=== PATIENT | male | born 1975 | race Hispanic/Latino ===

== ENCOUNTER 2024-11-08 17:18 | Observation (INO) | payer SELFPAY ==
--- NOTE | ~2024-11-08 | CT_ITS ---
EXAMINATION: CT soft tissue neck w con DATE: 11/08/2024 20:46 INDICATION: Abscess TECHNIQUE: Computed tomography (CT) of the neck was performed with 75 mL Omnipaque-350 intravenous co ntrast. Automated exposure control and iterative reconstruction technique were employed. The dose-gio gth product was 522.85 mGy-cm. COMPARISON: None FINDINGS: The thyroid gland is unremarkable. The submandibular and parotid glands are symmetric. Prominent, but not pathologically enlarged upper anterior cervical chain and submandibular lymph nodes. Soft ti ssue fullness in the hypopharynx at the midline and to the right of midline, in the pharyngeal mucosa l space, just above the level of the cricoid cartilage. The superior mediastinum is unremarkable. The airway is unremarkable. Parapharyngeal and retropharyngeal fat planes are preserved. Unrema rkable enhancing neck vessels. The orbits are unremarkable. Visualized sinuses and mastoid air cecilio ls are well aerated. The visualized lung parenchyma is clear. There is cervical spondylosis. Old left medial orbital wall fracture. IMPRESSION: Suggestion of pharyngeal mucosal space soft tissue fullness at the midline and to the right of midlin e, just above the level of the cricoid cartilage. Recommend ENT referral for indirect/direct laryngos copy to exclude a mass. Reviewed, dictated and finalized at location K. IMPRESSION: Suggestion of pharyngeal mucosal space soft tissue fullness at the midline and to the right of midline, just above the level of the cricoid cartilage. Recomme nd ENT referral for indirect/direct laryngoscopy to exclude a mass.
[2024-11-08 17:37] VITALS: BP 145/88; PULSE 80; RESP 18; TEMP 36.7; O2SAT 95
[2024-11-08 19:23] VITALS: BP 156/116; PULSE 85; RESP 14; O2SAT 96
--- NOTE | 2024-11-08 19:27 | ED.SKABFB ---
HPI - Skin/Abscess/Foreign Bdy General Chief complaint: Skin/Abscess/Foreign Body <Juana Rodarte PA-C - Last Filed: 11/08/24 22:47> Stated complaint: MALHOTRA, bump? 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 He has been on Doxycycline for 2 days with worsening of his symptoms. Reports drainage from the area. Denies fevers. <Juana Rodarte PA-C - Last Filed: 11/08/24 22:47> Related Data Home medications: Home Medications ?Medication ?Instructions ?Recorded ?Confirmed ?Last Taken ?Type doxycycline hyclate 100 mg capsule 100 mg PO Q12H 11/09/24 11/09/24 Unknown History <Juana Rodarte PA-C - Last Filed: 11/08/24 22:47> Allergies/Adverse reactions: Allergies Allergy/AdvReac Type Severity Reaction Status Date / Time No Known Allergies Allergy Verified 11/08/24 19:26 <Juana Rodarte PA-C - Last Filed: 11/08/24 22:47> Review of Systems Review of Systems: CONSTITUTIONAL: Denies fever SKIN: Reports abscess <SHANEKA Washington Last Filed: 11/08/24 22:47> All systems reviewed & are unremarkable except as noted in HPI and below <SHANEKA Washington Last Filed: 11/08/24 22:47> [facility] Past Medical History Medical History: Medical History Obesity, Class III, BMI 40-49.9 (morbid obesity) <Juana Rodarte PA-C - Last Filed: 11/08/24 22:47> Surgical History Surgical History: Surgical History No history of previous surgery <Juana Rodarte PA-C - Last Filed: 11/08/24 22:47> Family History Family History: Family History Other Unknown family medical history <Juana Rodarte PA-C - Last Filed: 11/08/24 22:47> Social History Social History: Social History Social History: The patient is . He has 2 adult sons. 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 Denies any history of tobacco, marijuana or alcohol use. Code status: Full code Surrogate decision maker: Smoking status: Never smoker Alcohol intake: never Substance use: never Do You Feel Safe in your Home?: Yes Lack of Transportation: No Lack of Food: Never True Current Housing: I Have Housing Concerned About Future Housing: No Difficulty Paying Gas/Electric Bills: No Difficulty Paying for Meds: YES Currently Unemployed: No Education: Grade School Difficulty w/ Childcare or Family Care: No Spiritual care concerns: No <Juana Rodarte PA-C - Last Filed: 11/08/24 22:47> Exam Narrative: GENERAL: Well-appearing, well-nourished, and in no acute distress. HEAD: Normocephalic, atraumatic. EYES: EOMI. NECK: Supple. Left posterior neck with large area of induration with central fluctuance, actively oozing pus CHEST: Clear to auscultation. No respiratory distress. No wheezes rales or rhonchi HEART: Regular rate and rhythm. No murmur heard. Normal peripheral pulses. EXTREMITIES: Normal range of motion. No edema. SKIN: Warm, dry, no rash. NEURO: No focal deficits. Alert and oriented x3. PSYCH: Normal mood and affect <Juana Rodarte PA-C - Last Filed: 11/08/24 22:47> Course Course Emergency Course: Patient updated on his workup and recommendation for admission <Juana Rodarte PA-C - Last Filed: 11/08/24 22:47> RESEARCH PROGRAM ASSISTANT/PA Physician Supervision I was made aware of this patient being in the emergency department. PA did discuss me that he abscess and be admitted. I did partially hear some of the history/conversation with the door somewhat open and translation services being used, during PA assessment and hospitalist's obtaining history of present illness and PMH, Past Fam hx, etc. I was available for consultation while patient was in the emergency department but did not personally evaluate them was not directly in their care. <Tigist Rodriguez MD - Last Filed: 11/09/24 13:29> Consultations Consultation #1: Spoke with Dr. Mayorga who will consult <Juana Rodarte PA-C - Last Filed: 11/08/24 22:47> Date: 11/08/24 <Juana Rodarte PA-C - Last Filed: 11/08/24 22:47> Consultation #2: Spoke with hospitalist about patient and workup who accepts admission <Juana Rodarte PA-C - Last Filed: 11/08/24 22:47> Date: 11/08/24 <Juana Rodarte PA-C - Last Filed: 11/08/24 22:47> Vital Signs Vital signs: Vital Signs Temperature 98.1 F 11/08/24 17:37 Pulse Rate 80 11/08/24 17:37 Respiratory Rate 18 11/08/24 17:37 Blood Pressure 145/88 H 11/08/24 17:37 Pulse Oximetry 95 11/08/24 17:37 Oxygen Delivery Room Air 11/08/24 17:37 Temperature 98.1 F 11/09/24 05:19 Pulse Rate 94 11/09/24 05:19 Respiratory Rate 20 11/09/24 09:00 Blood Pressure 136/82 11/09/24 05:19 Pulse Oximetry 92 11/09/24 09:00 Oxygen Delivery Room Air 11/09/24 09:00 <Juana Rodarte PA-C - Last Filed: 11/08/24 22:47> Vital Signs Temperature 98.1 F 11/08/24 17:37 Pulse Rate 80 11/08/24 17:37 Respiratory Rate 18 11/08/24 17:37 Blood Pressure 145/88 H 11/08/24 17:37 Pulse Oximetry 95 11/08/24 17:37 Oxygen Delivery Room Air 11/08/24 17:37 Temperature 98.1 F 11/09/24 05:19 Pulse Rate 94 11/09/24 05:19 Respiratory Rate 20 11/09/24 09:00 Blood Pressure 136/82 11/09/24 05:19 Pulse Oximetry 92 11/09/24 09:00 Oxygen Delivery Room Air 11/09/24 09:00 <Tigist Rodriguez MD - Last Filed: 11/09/24 13:29> MDM - Skin/Abscess/Foreign Bdy MDM Narrative Medical decision making narrative: Patient presents the emergency department for an abscess to the left posterior neck. Present over the last week. Has been on doxycycline for several days with little relief. He is afebrile and nontoxic appearing. CBC with leukocytosis to 10.6. This CRP is mildly elevated. CT soft tissue neck shows findings of cellulitis. No notable focal abscess. Incidentally shows a possible mass in his is pharynx. Patient updated on his workup and recommendation for admission. Blood cultures, wound culture sent. Patient started on IV antibiotics. Spoke with general surgery who will consult. Spoke with hospitalist about patient and workup who accepts admission <Juana Rodarte PA-C - Last Filed: 11/08/24 22:47> Differential Diagnosis Differential diagnosis: Likely abscess of skin or subcutaneous tissue and cellulitis <Juana Rodarte PA-C - Last Filed: 11/08/24 22:47> Lab Data Attestation: I reviewed the patient's lab results. <Juana Rodarte PA-C - Last Filed: 11/08/24 22:47> Result diagrams: 11/09/24 05:21 11/09/24 05:20 <Juana Rodarte PA-C - Last Filed: 11/08/24 22:47> Labs: Lab Results 11/08/24 Range/Units 19:42 WBC 10.6 H (4.5-10.0) K/mm3 RBC 5.62 (4.6-6.20) M/mm3 Hgb 16.8 (14.0-18.0) g/dL Hct 51.3 (42.0-52.0) % MCV 91.3 (80-100) fl MCH 29.9 (26-34) pg MCHC 32.7 (32-36) g/dl RDW 13.0 (11.5-14.5) % Plt Count 166 (150-375) k/mm3 MPV 12.0 H (7.4-10.4) fl Immature Gran % (Auto) 0.5 (0-0.5) % Neut % (Auto) 65.0 (45.5-73.1) % Lymph % (Auto) 20.9 (18.3-44.2) % Emmet % (Auto) 9.7 H (2.6-8.5) % Eos % (Auto) 3.3 (0-4.4) % Baso % (Auto) 0.6 (0.2-1.2) % Lymph # (Auto) 2.22 (0.9-3.2) K/mm3 Emmet # (Auto) 1.0 H (0.1-0.6) K/mm3 Eos # (Auto) 0.4 H (0-0.3) K/mm3 Baso # (Auto) 0.1 (0.0-0.1) K/mm3 Abs Immat Gran (auto) 0.05 H (0.00-0.031) K/mm3 Absolute Neuts (auto) 6.9 H (1.3-6.7) K/mm3 Absolute Nucleated RBC 0.000 (0.0-0.012) K/mm3 Nucleated RBC % 0.0 (0.0-0.2) % ESR 1 (0-20) mm/hr Sodium 139 (137-145) mmol/L Potassium 3.6 (3.4-5.0) mmol/L Chloride 99 (98-107) mmol/L Carbon Dioxide 32 H (22-30) mmol/L Anion Gap 8 (4-12) mmol/L BUN 12 (9-20) mg/dL Creatinine 0.77 (0.7-1.3) mg/dL Estim Creat Clear Calc 105 ml/min Estimated GFR > 60 (59 - ) Glucose 130 H (65-110) mg/dL Hemoglobin A1c 6.2 H (<5.7) % Calcium 9.0 (8.4-10.2) mg/dL C-Reactive Protein 2.3 H (<1.0) mg/dL <Juana Rodarte PA-C - Last Filed: 11/08/24 22:47> Lab Results 11/08/24 Range/Units 19:42 WBC 10.6 H (4.5-10.0) K/mm3 RBC 5.62 (4.6-6.20) M/mm3 Hgb 16.8 (14.0-18.0) g/dL Hct 51.3 (42.0-52.0) % MCV 91.3 (80-100) fl MCH 29.9 (26-34) pg MCHC 32.7 (32-36) g/dl RDW 13.0 (11.5-14.5) % Plt Count 166 (150-375) k/mm3 MPV 12.0 H (7.4-10.4) fl Immature Gran % (Auto) 0.5 (0-0.5) % Neut % (Auto) 65.0 (45.5-73.1) % Lymph % (Auto) 20.9 (18.3-44.2) % Emmet % (Auto) 9.7 H (2.6-8.5) % Eos % (Auto) 3.3 (0-4.4) % Baso % (Auto) 0.6 (0.2-1.2) % Lymph # (Auto) 2.22 (0.9-3.2) K/mm3 Emmet # (Auto) 1.0 H (0.1-0.6) K/mm3 Eos # (Auto) 0.4 H (0-0.3) K/mm3 Baso # (Auto) 0.1 (0.0-0.1) K/mm3 Abs Immat Gran (auto) 0.05 H (0.00-0.031) K/mm3 Absolute Neuts (auto) 6.9 H (1.3-6.7) K/mm3 Absolute Nucleated RBC 0.000 (0.0-0.012) K/mm3 Nucleated RBC % 0.0 (0.0-0.2) % ESR 1 (0-20) mm/hr Sodium 139 (137-145) mmol/L Potassium 3.6 (3.4-5.0) mmol/L Chloride 99 (98-107) mmol/L Carbon Dioxide 32 H (22-30) mmol/L Anion Gap 8 (4-12) mmol/L BUN 12 (9-20) mg/dL Creatinine 0.77 (0.7-1.3) mg/dL Estim Creat Clear Calc 105 ml/min Estimated GFR > 60 (59 - ) Glucose 130 H (65-110) mg/dL Hemoglobin A1c 6.2 H (<5.7) % Calcium 9.0 (8.4-10.2) mg/dL C-Reactive Protein 2.3 H (<1.0) mg/dL <Tigist Rodriguez MD - Last Filed: 11/09/24 13:29> Imaging Data Radiologist's impression: ITS Impressions Soft Tissue Neck CT 11/08/24 21:06 IMPRESSION: Suggestion of pharyngeal mucosal space soft tissue fullness at the midline and to the right of midline, just above the level of the cricoid cartilage. Recommend ENT referral for indirect/direct laryngoscopy to exclude a mass. <Juana Rodarte PA-C - Last Filed: 11/08/24 22:47> Critical Care Time Critical Care Time Critical Care Time: No <Juana Rodarte PA-C - Last Filed: 11/08/24 22:47> Discharge Plan Discharge Clinical Impression: Abscess, neck, Mass of pharynx <Juana Rodarte PA-C - Last Filed: 11/08/24 22:47> Patient Disposition: Still a Patient <Juana Rodarte PA-C - Last Filed: 11/08/24 22:47> Condition: Stable <Juana Rodarte PA-C - Last Filed: 11/08/24 22:47>
[2024-11-08 19:49] LABS: Basophils Absolute Auto 0.1 K/mm3 (0.0-0.1); Basophils Percent Auto 0.6 % (0.2-1.2); Eosinophils Absolute Auto 0.4 K/mm3 (0-0.3); Eosinophils Percent Auto 3.3 % (0-4.4); Hematocrit 51.3 % (42.0-52.0); Hemoglobin 16.8 g/dL (14.0-18.0); Immature Granulocyte Absolute 0.05 K/mm3 (0.00-0.031); Immature Granulocyte Percent A 0.5 % (0-0.5); Lymphocytes Absolute Auto 2.22 K/mm3 (0.9-3.2); Lymphocytes Percent Auto 20.9 % (18.3-44.2); Mean Corpuscular HGB Conc 32.7 g/dl (32-36); Mean Corpuscular Hemoglobin 29.9 pg (26-34); Mean Corpuscular Volume 91.3 fl (80-100); Monocytes Percent Auto 9.7 % (2.6-8.5); Neutrophils Absolute Auto 6.9 K/mm3 (1.3-6.7); Platelet Count Result 166 k/mm3 (150-375); Red Blood Count 5.62 M/mm3 (4.6-6.20); White Blood Count 10.6 K/mm3 (4.5-10.0)
[2024-11-08 20:02] LABS: Anion Gap 8 mmol/L (4-12); Blood Urea Nitrogen 12 mg/dL (9-20); CRP 2.3 mg/dL (<1.0); Carbon Dioxide 32 mmol/L (22-30); Chloride 99 mmol/L (98-107); Estimated CRCL calculation 105 ml/min; Estimated Glomerular Filt Rate > 60; Glucose 130 mg/dL (65-110); Potassium 3.6 mmol/L (3.4-5.0); Sodium 139 mmol/L (137-145)
--- OUTSIDE RECORDS SUMMARY | 2024-11-08 20:03 | XMS_ITS | Encounter Summary ---
Author Organization [facility] Address [address] [place] [address] Care Team Providers Care Associate Dean Name Role Phone None, Provider Primary Care Provider Unavaila ble Reason for Visit * Reason Comments Abscess Encounter Details Date Type Department Care Team (Late st Contact Info) Description 11/06/2024 6:42 PM CDT - 11/06/2024 8:40 PM CDT Emergency [facility] [place] [address] Bib Garcia PA [address] [place] [id number] Abscess Discharge Disposition: Home or Self Care (Routine Discharge) Social History Tobacco Use Types Packs/Day Years Used Date Smoking Tobacco: Never Assessed Sex and Gender Information Value Date Recorded Sex Assigned at Male 11/06/2024 6:36 PM CDT Legal Sex Male 6:32 PM CDT Gender Identity Not on file Sexual Orientation Not on file documented as of this encounter Last Filed Vital Signs Vital Sign Reading Time Taken Comments Blood Pressure 152/104 11/06/2024 6:35 PM CDT Pulse 88 11/06/2024 6:35 PM CDT Temperature 36.8 C (98.2 F) 11/06/2024 6:35 PM CDT Respiratory Rate 18 11/06/2024 6:35 PM CDT Oxygen Saturation 93% 11/06/2024 6:35 PM CDT Inhaled Oxygen Concentration - - Weight - - Height 165.1 cm (5' 5 ) 11/06/2024 6:35 PM CDT Body Mass Index - - documented in this encounter Discharge Instructions * Discharge Instructions* KRISTYN Arias - 11/06/2024 8:36 PM CDT [place] la medicaci??n seg??n lo prescrito. Aplique compresas tibias varias veces al d??a. Consulte con el ryley quir??rgico indicado para el tratamiento del quiste. Regrese a urgencias si los s??ntomasempeoran o aparecen nuevas inquietudes. * Attachments The following attachments cannot be sent through Care Everywhere. * Epidermal Cyst Discharge Instructions (Gibraltarian) documented in this encounter ED Notes * Swathi Abreu RN - 11/06/2024 8:40 PM CDT Provider discussed today's findings with the patient/family. The patient has been given informationregarding their treatment, follow up and concerning symptoms for which they should seek urgent or emergent attention. I have expressed the the importance of seeking attention should there be any new,or worsening symptoms or persistence of their condition. Patient verbalized understanding of the discharge instructions. * César Dorsey RN - 11/06/2024 6:37 PM CDT Pt ambulatory to ED complaining of wound on left neck x 4 days, denies other more specific symptoms. Gibraltarian speaking only bacteriology technician used. documented in this encounter Plan of Treatment Pending Results Name Type Priority Associated Diagnoses Date /Time CULTURE, WOUND, W/GRAM STAIN Microbiology STAT 11/06/2024 8:26 PM CDT Incision/Drainage Procedures Routine 025 9:37 PM CDT documented as of this encounter Procedures Procedure Name Priority Date/Time Associated Diagnosis Comments INCISION AND DRAINAGE Routine 11/06/2024 9:37 PM CDT HC BODY FLUID CULTURE STAT 11/06/2024 8:26 PM CDT documented in this encounter Visit Diagnoses Diagnosis Infected sebaceous cyst- Primary Sebaceous cyst documented in this encounter Administered Medications Inactive Administered Medications - up to 3 most recent administrations Medication Order MAR Action Action Date Dose Rate Site lidocaine-EPINEPHrine 1 %-1:[id number] injection 3 mL 3 mL, Intradermal, Once, 1 dose, On Sat11/06/24 at 1900 Given 11/06/2024 8:27 PM CDT 3 mLs Neck documented in this encounter Active and Recently Administered Medications Times are shown in CDT. Scheduled Medication Order 11/04/2024 11/05/2024 11/06/2024 lidocaine-EPINEPHrine 1 %-1:[id number] injection 3 mL (COMPLETED) 3 mL, Intradermal, Once, 1 dose, On Sat11/06/24 at 1900 2026 (Given - Provid er: Radha Lara RN) documented in this encounter Care Teams Associate Dean Relationship Specialty Start Date End Date None, Provider, PCP - General UNKNOWN PHYSICIAN SPECIALTY 11/06/24 documented as of this encounter
--- OUTSIDE RECORDS SUMMARY | 2024-11-08 20:03 | XMS_ITS | Clinical Summary ---
Author Organization [facility] Address [facility] [place] [address] Care Team Providers Care Carver And Checkerer Specials Name Role Phone None, Provider MD Primary Care Provider Unavaila ble Allergies No known active allergies Medications doxycycline hyclate (VIBRAMYCIN) 100 MG capsule Take 1 capsule (100 mg total) by mouth 2 (two) times daily for 7 days. 14 capsule 5 11/14/19 25 Active doxycycline hyclate (VIBRAMYCIN) 100 MG capsule Take 1 capsule (100 mg total) by mouth 2 (two) times daily for 7 days. 14 capsule 5 11/07/19 25 Discontinued Encounters Date Type Department Care Team Description 11/06/2024 6:42 PM CDT - 11/06/2024 8:40 PM CDT Emergency [facility] [place] [address] Bib Garcia PA Abscess Discharge Disposition: Home or Self Care (Routine Discharge) 11/06/2024 Travel from Last 3 Months Social History Tobacco Use Types Packs/Day Years Used Date Smoking Tobacco: Never Assessed Sex and Gender Information Value Date Recorded Sex Assigned at Male 11/06/2024 6:36 PM CDT Legal Sex Male 6:32 PM CDT Gender Identity Not on file Sexual Orientation Not on file Last Filed Vital Signs Vital Sign Reading [...] PM CDT Body Mass Index - - Plan of Treatment Health Maintenance Due Date Last Done Comments Colorectal Cancer Screening Colonoscopy (10 Years) 1977 Annual Physical 1980 Hepatitis C 1995 DTaP, Tdap and Td Vaccines ( 1 - Tdap) 1996 Hepatitis B Vaccines (1 of 3 - 19+ 3-dose series) 1996 COVID-19 Vaccine (2023-2 5 season) 2024 Influenza Adult (#1) 2024 Meningococcal B Vaccine Aged Out No l onger eligible based on patient's age to complete this topic Meningococcal Vaccine Aged Out No shelley norbert eligible based on patient's age to complete this topic Pneumococcal Vaccine: Pediat rics (0 to 5 Years) and At-Risk Patients (6 to 64 Years) Aged Out No longer eligible b ased on patient's age to complete this topic RSV Immunizations Under 20 Months Aged Out No longer eligible based on patient's age to complete this topic Procedures Procedure Name Priority Date/Time Associated Diagnosis Comments INCISION AND DRAINAGE Routine 11/06/2024 9:37 PM CDT HC BODY FLUID CULTURE STAT 11/06/2024 8:26 PM CDT from Last 3 Months Care Teams Carver And Checkerer Specials Relationship Specialty Start Date End Date None, Provider, MD PCP - General UNKNOWN PHYSICIAN SPECIALTY 11/06/24
--- OUTSIDE RECORDS SUMMARY | 2024-11-08 20:03 | XMS_ITS | Continuity of Care Document ---
Author Organization [facility] Address [address] [place] [address] Phone Care Team Providers Care Robotype Operator Name Role Phone Ovi Romero Unavailable Unavailable Ovi Romero Unavailable Unavailable Medications Medication Instructions Dosage Effective Dates (start - stop) Status Comments ibuprofen 600 mg tablet take 1 tablet by oral route1 time every 6-8 hours as needed with food - No Longer Active Tylenol Extra Strength 500 mg tablet take 2 tablet by oral route every 6 hours as needed 1000 MG - No Longer Active Procedures Procedure Date Caries Risk Assess & Doc High Risk Limit Oral Evaluation- problem focused A Periapical Radiographic, first Image Mar Dental Bitewing Radiographic, One Image Extraction erupted tooth or exposed root Immun admin-adult or WO counseling-each [place] aft [address] HEPATITIS A VACCINE, ADULT DOSAGE, FOR I NTRAMUSCULAR USE Immun admin-adult or WO counseling - fir st vaccine/toxoid Fluarix OFFICE/OUTPATIENT VISIT, NEW Advance Directives Directive Yes / No Effective Date File Name No Information Encounters Encounter Description Practice Location Reason(s) For Visit Diagnoses Date Provider Providers Copied on Encounter [facility] , [address], [place], [place], [id number], [place] tel:[phone] [facility] Encounter for dental exam and cleaning w abnormal findingsDental caries on pit and fissure surface penetrat into pulp Heather Dior. [address], [place], [place], [address]. tel:[phone] Referring Provider: Sury Fleming, [address], [place], [address] . tel:[phone] sulting Provider: Ovi Romero, [address], [place], [address] . tel:[phone] OFFICE/OUTPAT IENT VISIT, [facility] , [address], [place], [place], [id number], tel:[phone] Urgent Care Hep A (chief complaint) Body mass index (BMI) 38.0-38.9, adultEncounter for immunization 2 No Information Referring Provider: Shailesh Toscano, [address], [place], [address] . tel:[phone] Family History Family Member Type Diagnosis Age At Onset No Information Immunizations Vaccine Date Status Comments Fluzone/Flulaval (Influenza, 6 months and older, preservative free) administered Note: pt tolerated w ell ; Source: New Immunization Record Vaqta/Havrix (HepA adult) administered No te: pt tolerated well ; Source: New Immunization Record Payers Payer name Insurance type Covered alliance party ID Authoriza tion(s) No Information Social History Type Description Quantity Date Captured Comments Sex Male Smoking Status No Information Sexual Orientation Straight or heterosexual Jul Gender Identity Male Chief Complaint And Reason For Visit No Information Reason For Referral Reason For Referral No Information Plan Of Treatment Date Type Action Status Nutrition Recommendation Nutrition therap y completed History Of Present Illness Encounter Date Complaint History Of Prese nt Illness Hep A ethiopian audio in terpreter assistedpt here for hep a shotpt needs it for workpt has not had a flu shot this year Functional Status Date Functional Assessmen t No Information Instructions Date Instruction Additional Infor mation Prescribed activity/ exercise education Related to Body mass index [BMI] 38.0-38.9, adult Assessments Type Assessment Date No Information Patient Care Teams Name Effective Dates (start - stop) Status Members No Information
[2024-11-08 20:18] LABS: Erythrocyte Sedimentation Rate 1 mm/hr (0-20)
[2024-11-08 20:29] LABS: Hemoglobin A1C 6.2 % (<5.7)
[2024-11-08 22:14] VITALS: BP 162/100; PULSE 83; RESP 14; O2SAT 94
[2024-11-08] MEDS: VANCOMYCIN 1,500 MG/NS 500 ML 1,500 MG/500 ML BAG 250 MG IVPB (22:14)
--- NOTE | 2024-11-08 23:06 | PM.IMHP ---
H&P: HPI History of Present Illness Date/Time: 11/08/24 23:06 Chief Complaint: Painful area with pus on the back of his neck Narrative: 49-year-old morbidly obese male with reportedly no significant past medical history who presented to the ER with erythema swelling and pain to the posterior neck just left of midline. At the symptoms are about 5 days ago with a small pimple peer to popped area and got a little bit of purulence. Whenever the area became larger and more red he applied a garlic paste to the area as someone told him that that would help bring the infection out. He reported that seemed to just cause more skin irritation. He has not been having any fevers or chills. He denies any prior history of recurrent skin infections. He denies any injury to the area. He went to me received a prescription for doxycycline ended taken 2 doses of antibiotics but did not have any improvement in symptoms in fact he decided to come here when he was having increasing pain. He is still had continuous purulent drainage from the area for the last couple of days. He has increased pain with palpation of the area he feels a lot of pressure. He denies any other related symptoms. He was noted to have some hyperglycemia on his labs in the ER in A1c was obtained which was elevated at 6.2 %. He denies a known history of diabetes. He denies any peripheral neuropathy. He does report despite on exertion of standing issue and has not worsened. He reports that is been gaining weight. He denies any chest pain or palpitations. He reported that several months ago she did have about 6 or 8 weeks of lower extremity swelling up to his knee with at is since resolved. He denies any orthopnea. He states that his reports that he snores quite loudly. He really to snoring due to getting a piece of hard food stuck near his uvula many years ago at which time he grabbed his uvula to get the food on stuck and he thinks he stretches uvula. The patient proceeded to then demonstrate how he could cough and props his uvula up on his posterior tongue. He has never been tested for obstructive sleep apnea. He does have daytime fatigue. Vital signs in the ER demonstrated persistently elevated blood pressures. He denies a known history of hypertension but has not followed with a doctor in at least 2 years. He denies ever being hospitalized or having surgery. History was obtained through the [employer] interpreting service. Motorcycle Riding Instructor number was [id number] shipping assistant was Lupe. The patient is Latvian-speaking only. Review of Systems Review of Systems: 12 systems were reviewed with pertinent positives and negatives per HPI. Except as documented in the HPI, all other systems were reviewed and are negative. [facility] Past Medical History Medical History (Updated 11/09/24 @ 03:38 by Celeste Nino DO) Obesity, Class III, BMI 40-49.9 (morbid obesity) Surgical History Surgical History (Updated 11/09/24 @ 02:47 by Celeste Nino DO) No history of previous surgery Family History Family History (Updated 11/09/24 @ 00:33 by Chantal Marin RN) Other Unknown family medical history Social History Social History (Updated 11/09/24 @ 03:39 by Celeste Nino DO) Social History: The patient is . He has 2 adult sons. 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 Denies any history of tobacco, marijuana or alcohol use. Code status: Full code Surrogate decision maker: Smoking status: Never smoker Alcohol intake: never Substance use: never Do You Feel Safe in your Home?: Yes Lack of Transportation: No Lack of Food: Never True Current Housing: I Have Housing Concerned About Future Housing: No Difficulty Paying Gas/Electric Bills: No Difficulty Paying for Meds: YES Currently Unemployed: No Education: Grade School Difficulty w/ Childcare or Family Care: No Spiritual care concerns: No Meds Home Medications and Allergies Home Medications ?Medication ?Instructions ?Recorded ?Confirmed ?Type doxycycline hyclate 100 mg capsule 100 mg PO Q12H 11/09/24 11/09/24 History Allergies Allergy/AdvReac Type Severity Reaction Status Date / Time No Known Allergies Allergy Verified 11/08/24 19:26 Vital Signs Vital Signs - 24 hr 11/08/24 17:37 11/08/24 19:23 11/08/24 22:14 Temperature 98.1 F Pulse Rate 80 85 83 Respiratory Rate 18 14 14 Blood Pressure 145/88 H 156/116 H 162/100 H Pulse Oximetry 95 96 94 Oxygen Delivery Room Air Exam Narrative: Weight 103.4 kg BMI 44.5 Const: Other: Morbidly obese, no acute distress, appears older age HENMT: Other: Head is normocephalic atraumatic, mucous membranes are moist, no oral pharyngeal erythema, severely crowded posterior oropharynx, extremely long uvula at is propped on the back the patient's tongue Eyes: Other: Pupils are equal and reactive, injected scleral bilateral rib no conjunctival erythema, no drainage or purulent Neck: Other: Large neck circumference, no JVD, erythema to the posterior neck just left of midline with area of opening that has obvious purulent drainage when pressure is applied, associated induration to the left of area of purulence drainage is tender to palpation, area was I indeed please see procedure note persistent area of induration in tenderness remains to the left of the abscess suspected to be lymphadenopathy Resp: Other: Increased work of breathing with exertion, otherwise lungs are clear to auscultation bilaterally, no accessory muscle use Cardio: Other: Regular rate, regular rhythm, 2+ bilateral radial pedal pulse GI: Other: Obese, nontender, positive bowel sounds Skin: Other: Acanthosis nigricans to posterior neck, erythema and induration as described above chronic peeling skin to bilateral feet distant with tinea pedis Neuro: Other: Alert oriented, speech is clear, no facial asymmetry, no localizing neurologic deficits noted during the course of conversation, normal gait Extrem: Other: No clubbing, cyanosis or edema Psych: Other: Appropriate mood and affect, pleasant and cooperative, judgment and insight intact H&P: Results Labs Labs: Laboratory Tests 11/08/24 19:42 11/08/24 19:42 11/08/24 19:42 WBC 10.6 H RBC 5.62 Hgb 16.8 Hct 51.3 MCV 91.3 MCH 29.9 MCHC 32.7 RDW 13.0 Plt Count 166 MPV 12.0 H Immature Gran % (Auto) 0.5 Neut % (Auto) 65.0 Lymph % (Auto) 20.9 Eaton % (Auto) 9.7 H Eos % (Auto) 3.3 Baso % (Auto) 0.6 Lymph # (Auto) 2.22 [place] # (Auto) 1.0 H Eos # (Auto) 0.4 H Baso # (Auto) 0.1 Abs Immat Gran (auto) 0.05 H Absolute Neuts (auto) 6.9 H Absolute Nucleated RBC 0.000 Nucleated RBC % 0.0 ESR 1 Sodium 139 Potassium 3.6 Chloride 99 Carbon Dioxide 32 H Anion Gap 8 BUN 12 Creatinine 0.77 Estim Creat Clear Calc 105 Estimated GFR > 60 Glucose 130 H Hemoglobin A1c 6.2 H Calcium 9.0 C-Reactive Protein 2.3 H Impressions Soft Tissue Neck CT 11/08/24 21:06 IMPRESSION: Suggestion of pharyngeal mucosal space soft tissue fullness at the midline and to the right of midline, just above the level of the cricoid cartilage. Recommend ENT referral for indirect/direct laryngoscopy to exclude a mass. Assessment and Plan Assessment and plan (1) Abscess, neck: Code(s): L02.11 - Cutaneous abscess of neck Status: Acute (2) Mass of pharynx: Code(s): J39.2 - Other diseases of pharynx Status: Acute (3) Snoring: Code(s): R06.83 - Snoring Status: Acute (4) Obesity, Class III, BMI 40-49.9 (morbid obesity): Code(s): E66.01 - Morbid (severe) obesity due to excess calories Status: Acute (5) Essential hypertension: Code(s): I10 - Essential (primary) hypertension Status: Acute (6) Metabolic syndrome: Code(s): E88.810 - Metabolic syndrome Status: Acute (7) Allergic conjunctivitis and rhinitis: Qualifiers: Laterality: bilateral Qualified Code(s): H10.13 - Acute atopic conjunctivitis, bilateral; J30.9 - Allergic rhinitis, unspecified Code(s): H10.10 - Acute atopic conjunctivitis, unspecified eye; J30.9 - Allergic rhinitis, unspecified Status: Acute Plan Says the posterior neck with surrounding cellulitis. Patient was started on vancomycin in the ER. Superficial cultures cultures were also obtained. Continue vancomycin. I performed due to the in the wound was packed with iodoform gauze. Change gauze on the . Then routine wound care with recurrent packing Q 48 hours until healed. Patient has elevated A1c and is at increased risk of diabetes he is also morbidly obese and has elevated blood pressures all suture new diagnosis. He fits criteria for metabolic syndrome. Will check fasting lipid panel. Will start lisinopril. Will request dietitian consult the leg information on a diet to help him lose weight. Patient does snore and has extremely long uvula in a crowded posterior oropharynx. He likely has undiagnosed obstructive sleep apnea. Patient would benefit from outpatient polysomnogram. He reports bilateral itching and burning eyes and significant rhinorrhea and postnasal drip. Patient has been admitted as observation status. Quality VTE Prophylaxis VTE prophylaxis: pharmacologic ordered (Lovenox 40 mg subQ q.12 hours) Hospitalist [facility] Advance Care Plan I have confirmed that the patient's Advanced Care Plan is present, code status is documented, or surrogate decision maker is listed in patient medical record.: Yes Medication Reconciliation I have utilized all available resources to obtain, update and review the patients current medications (includes all prescriptions, OTC, herbals, cannabis, and nutritional supplements).: Yes
[2024-11-08 23:28] VITALS: BP 161/111; PULSE 77; RESP 16; O2SAT 95
--- NOTE | 2024-11-08 23:32 | PC.NURSE ---
Hospitalist aware of pts elevated blood pressures.
[2024-11-08 23:41] VITALS: BMI 44.5
--- NOTE | 2024-11-09 00:23 | ADMGEN ---
This patient, Branden Bruno, was admitted to 3 [facility] Room 316-02. Patient/family oriented to hospital policies and general routines including ID bracelet, bed and alarms, visiting hours, pain management, procedures, bathroom and other care routines, personal items, smoking policy, room service/diet, and visiting hours. Information on how to activate the Rapid Response Team has been discussed. Patient/Family are encouraged to report perceived risks to care and to ask questions if they do not understand what they are told or what they should do.
[2024-11-09 00:27] VITALS: BP 154/92; PULSE 78; RESP 16; TEMP 37.3; O2SAT 94
[2024-11-09] MEDS: LIDOCAINE 1% INFILTRATE (01:45)
--- NOTE | 2024-11-09 02:27 | WPDPROCEDUR ---
Procedures Abscess I/D Site: neck (Posterior) Side (if applicable): left Anesthetic used: lidocaine 2% Technique: incised with #11 blade and probed loculations Amount of fluid (mL): 10 Irrigation: No Packing used?: iodoform Comments: The wound was packed with about 3 in of half-inch iodoform gauze and covered with a 4 x 4 Mepilex
[2024-11-09 05:19] VITALS: BP 136/82; PULSE 94; RESP 20; TEMP 36.7; O2SAT 90
[2024-11-09 05:38] LABS: Hemoglobin 16.9 g/dL (14.0-18.0); Mean Corpuscular HGB Conc 33.1 g/dl (32-36); Mean Corpuscular Hemoglobin 29.9 pg (26-34); Mean Corpuscular Volume 90.3 fl (80-100); Mean Platelet Volume 12.5 fl (7.4-10.4); Platelet Count Result 177 k/mm3 (150-375); Red Blood Count 5.65 M/mm3 (4.6-6.20); Red Cell Distribution Width 12.8 % (11.5-14.5); White Blood Count 8.7 K/mm3 (4.5-10.0)
[2024-11-09 05:54] LABS: Estimated CRCL calculation 129 ml/min; Estimated Glomerular Filt Rate > 60
[2024-11-09 05:56] LABS: Cholesterol 214 mg/dL (0-200); HDL Direct 43 mg/dL; Triglycerides 174 mg/dL (<150)
[2024-11-09 06:05] LABS: LDL Cholesterol Direct 150 mg/dL
[2024-11-09 07:42] LABS: MRSA (PCR) NOT DETECTED (NOT DETECTE)
[2024-11-09] MEDS: LORATADINE 10 MG TABLET PO (08:41)
[2024-11-09] MEDS: lisinopriL 20 MG TABLET PO (08:46)
[2024-11-09] MEDS: ENOXAPARIN 40 MG/0.4 ML SYRINGE SUB-Q ×2 (08:48→21:09)
[2024-11-09] MEDS: OLOPATADINE 0.1% OPHTH SOLN 5 ML BTL 1 DROP EACH EYE ×2 (08:55→21:09)
[2024-11-09 09:00] VITALS: RESP 20; O2SAT 92
[2024-11-09] MEDS: VANCOMYCIN 1,500 MG/NS 500 ML 1,500 MG/500 ML BAG 250 MG IVPB (09:10)
[2024-11-09] MEDS: ATORVASTATIN 20 MG TABLET PO (09:49)
--- NOTE | 2024-11-09 11:32 | P.CONGS_ITS ---
Assessment and Plan Assessment and plan (1) Abscess, neck: Code(s): L02.11 - Cutaneous abscess of neck Status: Acute Assessment and Plan: Patient presents with a posterior neck abscess. Hospitalist performed a bedside I and D overnight. This is currently packed with iodoform packing. White blood cell count was initially 10.6 on admission and is down to 8.7 today. Cultures were obtained and are pending. Continue IV antibiotics for now. We will remove packing and reassess again tomorrow. (2) Essential hypertension: Code(s): I10 - Essential (primary) hypertension Status: Acute (3) Obesity, Class III, BMI 40-49.9 (morbid obesity): Code(s): E66.01 - Morbid (severe) obesity due to excess calories Status: Acute (4) Mass of pharynx: Code(s): J39.2 - Other diseases of pharynx Status: Acute Assessment and Plan: Noted on soft tissue neck CT with recommendation of ENT referral. Agree with outpatient ENT referral. (5) Metabolic syndrome: Code(s): E88.810 - Metabolic syndrome Status: Acute Plan I have discussed the patient's case and plan of care with Dr. Mayorga. Thank you for allowing us to see the patient in consultation and we will continue to follow along with you. History of Present Illness Consult details Consult date: 11/09/24 Reason for consult: other (Neck abscess vs cellulitis) Requesting physician: Haydee Davis, MARK Narrative: This is a 49-year-old morbidly obese Lithuanian speaking male with reportedly no significant past medical history. History was obtained by review of the EMR as well as asking the patient with an set off blocker. He came into the ED yesterday with complaints of posterior erythema and swelling to the neck. Symptoms started about 5 days ago with a small pimple that he had popped with a small amount of purulence drainage. Area became larger and more red, therefore he attempted to apply garlic paste to this area. He apparently received a prescription for doxycycline and received 2 doses of the antibiotics without any improvement. He felt the symptoms were getting worse and he was having more pain, therefore he came into the ED for evaluation. No fever or chills. No previous history of skin infections, denies a history of diabetes. Denies any injury to this area. Vital signs in the ER demonstrated persistently elevated blood pressures. He denies a known history of hypertension. He denies ever being hospitalized or having surgery. Workup revealed a mildly elevated white blood cell count [id number]. CT scan of the soft tissues of the neck showed suggestion of very angio mucosal space soft tissue fullness at the midline and to the right of midline just above the level of the cricoid cartilage. Recommended ENT referral. He had clinical evidence of cellulitis of the posterior neck and was admitted for IV antibiotics and further evaluation. Hospitalist overnight reformed a bedside I&D. Cultures obtained and pending. Review of Systems 2 Review of Systems: All systems reviewed & are unremarkable except as noted in HPI and below PMFSH Past Medical History Medical History Obesity, Class III, BMI 40-49.9 (morbid obesity) Surgical History Surgical History No history of previous surgery Family History Family History Other Unknown family medical history Social History Social History Social History: The patient is . He has 2 adult sons. 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 Denies any history of tobacco, marijuana or alcohol use. Code status: Full code Surrogate decision maker: Smoking status: Never smoker Alcohol intake: never Substance use: never Do You Feel Safe in your Home?: Yes Lack of Transportation: No Lack of Food: Never True Current Housing: I Have Housing Concerned About Future Housing: No Difficulty Paying Gas/Electric Bills: No Difficulty Paying for Meds: YES Currently Unemployed: No Education: Grade School Difficulty w/ Childcare or Family Care: No Spiritual care concerns: No Meds Home Medications and Allergies Home Medications ?Medication ?Instructions ?Recorded ?Confirmed ?Type doxycycline hyclate 100 mg capsule 100 mg PO Q12H 11/09/24 11/09/24 History Allergies Allergy/AdvReac Type Severity Reaction Status Date / Time No Known Allergies Allergy Verified 11/08/24 19:26 Vital Signs Vital Signs - 24 hr 11/08/24 17:37 11/08/24 19:23 11/08/24 22:14 Temperature 98.1 F Pulse Rate 80 85 83 Respiratory Rate 18 14 14 Blood Pressure 145/88 H 156/116 H 162/100 H Pulse Oximetry 95 96 94 Oxygen Delivery Room Air 11/08/24 23:28 11/09/24 00:27 11/09/24 00:45 Temperature 99.2 F Pulse Rate 77 78 Respiratory Rate 16 16 Blood Pressure 161/111 H 154/92 H Pulse Oximetry 95 94 Oxygen Delivery Room Air 11/09/24 05:19 11/09/24 09:00 Temperature 98.1 F Pulse Rate 94 Respiratory Rate 20 20 Blood Pressure 136/82 Pulse Oximetry 90 92 Oxygen Delivery Room Air Exam 2 Const: General: comfortable and no acute distress Nutritional Appearance: o bese Orientation/consciousness: patient oriented x3 HENMT: Head: normocephalic and atraumatic Ears: hearing grossly normal bilaterally Mouth: Yes moist mucous membranes Eyes: General: appearance normal, both eyes and all related structures P upils: Equal, round and reactive pupils present Neck: Other: There is a 6 x 4 cm area of erythema and induration to left posterior neck with incision in the right of center of this area that is packed with iodoform gauze Resp: Effort & Inspection: no respiratory distress Auscultation: clear to auscultation bilaterally Cardio: Rate: regular rate Rhythm: regular rhythm Peripheral pulses: P eripheral pulses 2+ throughout GI: Inspection: non-distended GI Palp: Yes Soft to palpation, No Tenderness to palpation present (GI), No Guarding due to palpation present (GI) and No Rebound tenderness present Auscultation: normal bowel sounds Skin: General skin exam: normal color Neuro: General: moves all extremities and no focal motor deficits Speech: n ormal speech Motor exam (neuro): 5/5 motor strength present throughout Extrem: General: normal to inspection and no edema Psych: Mental Status: mental status grossly normal Attitude: cooperative Insight: Good insight present (Psych) Judgement: Good judgement present (Psych) Results Labs 11/09/24 05:21 11/09/24 05:20 Labs: Abnormal lab results 11/08/24 11/09/24 11/09/24 Range/Units 19:42 05:20 05:21 WBC 10.6 H (4.5-10.0) K/mm3 MPV 12.0 H 12.5 H (7.4-10.4) fl [place] % (Auto) 9.7 H (2.6-8.5) % [place] # (Auto) 1.0 H (0.1-0.6) K/mm3 Eos # (Auto) 0.4 H (0-0.3) K/mm3 Abs Immat Gran (auto) 0.05 H (0.00-0.031) K/mm3 Absolute Neuts (auto) 6.9 H (1.3-6.7) K/mm3 Carbon Dioxide 32 H (22-30) mmol/L Creatinine 0.61 L (0.7-1.3) mg/dL Glucose 130 H (65-110) mg/dL Hemoglobin A1c 6.2 H (<5.7) % C-Reactive Protein 2.3 H (<1.0) mg/dL Triglycerides 174 H (<150) mg/dL Cholesterol 214 H (0-200) mg/dL Diabetes panel 11/08/24 11/09/24 Range/Units 19:42 05:20 Sodium 139 (137-145) mmol/L Potassium 3.6 (3.4-5.0) mmol/L Chloride 99 (98-107) mmol/L Carbon Dioxide 32 H (22-30) mmol/L BUN 12 (9-20) mg/dL Creatinine 0.77 0.61 L (0.7-1.3) mg/dL Glucose 130 H (65-110) mg/dL Hemoglobin A1c 6.2 H (<5.7) % Calcium 9.0 (8.4-10.2) mg/dL Triglycerides 174 H (<150) mg/dL Calcium panel 11/08/24 Range/Units 19:42 Calcium 9.0 (8.4-10.2) mg/dL Pituitary panel 11/08/24 11/09/24 Range/Units 19:42 05:20 Sodium 139 (137-145) mmol/L Potassium 3.6 (3.4-5.0) mmol/L Chloride 99 (98-107) mmol/L Carbon Dioxide 32 H (22-30) mmol/L BUN 12 (9-20) mg/dL Creatinine 0.77 0.61 L (0.7-1.3) mg/dL Glucose 130 H (65-110) mg/dL Calcium 9.0 (8.4-10.2) mg/dL Adrenal panel 11/08/24 11/09/24 Range/Units 19:42 05:20 Sodium 139 (137-145) mmol/L Potassium 3.6 (3.4-5.0) mmol/L Chloride 99 (98-107) mmol/L Carbon Dioxide 32 H (22-30) mmol/L BUN 12 (9-20) mg/dL Creatinine 0.77 0.61 L (0.7-1.3) mg/dL Glucose 130 H (65-110) mg/dL Calcium 9.0 (8.4-10.2) mg/dL All other labs normal. Imaging Additional studies: ITS Impressions Soft Tissue Neck CT 11/08/24 21:06 IMPRESSION: Suggestion of pharyngeal mucosal space soft tissue fullness at the midline and to the right of midline, just above the level of the cricoid cartilage. Recommend ENT referral for indirect/direct laryngoscopy to exclude a mass.
[2024-11-09 13:25] VITALS: BP 139/80; PULSE 71; RESP 15; TEMP 36.4; O2SAT 97
--- NOTE | 2024-11-09 15:16 | P.PNIM_ITS ---
Progress Note: A&P Assessment and Plan (1) Abscess, neck: Code(s): L02.11 - Cutaneous abscess of neck Status: Acute Assessment and Plan: * CT soft tissue fullness suspicion for cellulitis * I&D bedside by previous provider * Q48 hour dressing changes * Surgery consulted for any further recommendations * Initially started on IV vancomycin normal WBC today * Wound culture sent * Blood cultures NGTD * Transition to PO Linezolid (2) Mass of pharynx: Code(s): J39.2 - Other diseases of pharynx Status: Acute Assessment and Plan: * Incidental finding on CT report * Spoke with Dr. Sammy alexander follow up outpatient with ENT (3) Snoring: Code(s): R06.83 - Snoring Status: Acute Assessment and Plan: * Recommending outpatient sleep study (4) Obesity, Class III, BMI 40-49.9 (morbid obesity): Code(s): E66.01 - Morbid (severe) obesity due to excess calories Status: Acute Assessment and Plan: * encourage increased on physical activity and lifestyle modifications * Diet exercise counseling done. * consult to dietitian (5) Essential hypertension: Code(s): I10 - Essential (primary) hypertension Status: Acute Assessment and Plan: * Patient was started on Lisinopril (6) Allergic conjunctivitis and rhinitis: Qualifiers: Laterality: bilateral Qualified Code(s): H10.13 - Acute atopic conjunctivitis, bilateral; J30.9 - Allergic rhinitis, unspecified Code(s): H10.10 - Acute atopic conjunctivitis, unspecified eye; J30.9 - Allergic rhinitis, unspecified Status: Acute Assessment and Plan: * Claritin and olpatadine eye drops started (7) Metabolic syndrome: Code(s): E88.810 - Metabolic syndrome Status: Acute (8) HLD (hyperlipidemia): Code(s): E78.5 - Hyperlipidemia, unspecified Status: Acute Assessment and Plan: * Lipid panel: Triglycerides 174 total cholesterol 214/LDL 150/HDL 43 * Started atorvastatin (9) Diabetes: Code(s): E11.9 - Type 2 diabetes mellitus without complications Status: Acute Assessment and Plan: * Hyperglycemic POA * A1c 6.2 * Can initiate metformin at discharge * Follow-up A1c in 3 month Plan Code status: Full code per patient DVT prophylaxis: Lovenox Stress ulcer prophylaxis: Protonix 40 daily PT/OT notes: Ambulatory Disposition: Patient is a 49-year-old male who is admitted for further evaluation of abscess to the posterior neck surgery consulted I&D bedside transition from IV vancomycin to linezolid PO will monitor overnight can likely discharge home tomorrow cultures pending. Time Spent With Patient Time with patient: 15 - 25 minutes Subjective Date/time seen: 11/09/24 15:16 Interval history: Patient is a 49-year-old male admitted for abscess of the posterior neck post I&D at bedside surgery following. 11/09/2024: Assumed Care Patient in no acute distress WBC trended and down and he has been afebrile. Patient reported the pain is gone to posterior neck still with purulent drainage. Patient reported mild fever prior to admission but since has been afebrile, denied CP, SOB, N/V, Chills. Review of Systems Review of Systems: 12 systems were reviewed with pertinent positives and negatives per HPI. Except as documented in the HPI, all other systems were reviewed and are negative. All systems reviewed & are unremarkable except as noted in HPI and below Exam Narrative: Pleasant estonian speaking male Const: General: comfortable and no acute distress HENMT: Mouth: Yes moist mucous membranes Eyes: General: appearance normal, both eyes and all related structures Pupils: Equal, round and reactive pupils present Neck: Lymphatic: lymphadenopathy Other: There is a 6 x 4 cm area of erythema and induration to left posterior neck with incision in the right of center of this area that is packed with iodoform gauz Resp: Effort & Inspection: normal respiratory effort GI: GI Palp: Yes Soft to palpation Auscultation: normal bowel sounds Other: Obese Skin: General skin exam: erythema (Posterior neck ) Wounds: wounds noted (Neck) incision posterior other Neuro: General: gait normal Speech: normal speech Extrem: General: normal to inspection Psych: Mental Status: mental status grossly normal Affect: normal affect Objective Data Vital Signs Vital Signs: Vital Signs - 24 hr 11/08/24 17:37 11/08/24 19:23 11/08/24 22:14 Temperature 98.1 F Pulse Rate 80 85 83 Respiratory Rate 18 14 14 Blood Pressure 145/88 H 156/116 H 162/100 H Pulse Oximetry 95 96 94 Oxygen Delivery Room Air 11/08/24 23:28 11/09/24 00:27 11/09/24 00:45 Temperature 99.2 F Pulse Rate 77 78 Respiratory Rate 16 16 Blood Pressure 161/111 H 154/92 H Pulse Oximetry 95 94 Oxygen Delivery Room Air 11/09/24 05:19 11/09/24 09:00 11/09/24 13:25 Temperature 98.1 F 95.4 F L Pulse Rate 94 71 Respiratory Rate 20 20 15 Blood Pressure 136/82 139/80 Pulse Oximetry 90 92 97 Oxygen Delivery Room Air Intake/Output Intake/Output: Intake & Output 11/06/24 11/07/24 11/08/24 11/09/24 23:59 23:59 23:59 23:59 Intake Total 1650 Balance 1650 Meds/Results Medications: Active Medications Generic Name Dose Route Start Last Admin Trade Name Freq PRN Reason Stop Dose Admin Acetaminophen 650 mg 11/09/24 02:32 Acetaminophen 325 Mg Tablet PO Q4H PRN Headache Hydrocodone Bitart/Acetaminophen 1 tab 11/09/24 02:32 Hydrocodone/Acetaminophen (*Crx) 5-325 Mg Tablet PO Q6H PRN Pain Rated 7-10 Atorvastatin Calcium 20 mg 11/09/24 09:30 11/09/24 09:49 Atorvastatin 20 Mg Tablet PO 20 mg DAILY OLEG Administration Enoxaparin Sodium 40 mg 11/09/24 09:00 11/09/24 08:48 Enoxaparin 40 Mg/0.4 Ml Syringe SUB-Q 40 mg Q12HR OLEG Administration Ibuprofen 600 mg 11/09/24 02:32 Ibuprofen 600 Mg Tablet PO Q6H PRN Pain Rated 4-6 Linezolid 600 mg 11/09/24 21:00 Linezolid 600 Mg Tablet PO 11/15/24 21:01 Q12HR [facility] Lisinopril 20 mg 11/09/24 09:00 11/09/24 08:46 Lisinopril 20 Mg Tablet PO 20 mg QAM [facility] Administration Loratadine 10 mg 11/09/24 09:00 11/09/24 08:41 Loratadine 10 Mg Tablet PO 10 mg QAM [facility] Administration Olopatadine HCl 1 drop 11/09/24 09:00 11/09/24 08:55 Olopatadine 0.1% Ophth Soln 5 Ml Btl EACH EYE 1 drop Q12HR OLEG Administration Radiology Results: ITS Impressions Soft Tissue Neck CT 11/08/24 21:06 IMPRESSION: Suggestion of pharyngeal mucosal space soft tissue fullness at the midline and to the right of midline, just above the level of the cricoid cartilage. Recommend ENT referral for indirect/direct laryngoscopy to exclude a mass. Labs Labs: Laboratory Results - last 24 hr 11/08/24 11/09/24 11/09/24 19:42 05:20 05:21 WBC 10.6 H 8.7 RBC 5.62 5.65 Hgb 16.8 16.9 Hct 51.3 51.0 MCV 91.3 90.3 MCH 29.9 29.9 MCHC 32.7 33.1 RDW 13.0 12.8 Plt Count 166 177 MPV 12.0 H 12.5 H Immature Gran % (Auto) 0.5 Neut % (Auto) 65.0 Lymph % (Auto) 20.9 [place] % (Auto) 9.7 H Eos % (Auto) 3.3 Baso % (Auto) 0.6 Lymph # (Auto) 2.22 [place] # (Auto) 1.0 H Eos # (Auto) 0.4 H Baso # (Auto) 0.1 Abs Immat Gran (auto) 0.05 H Absolute Neuts (auto) 6.9 H Absolute Nucleated RBC 0.000 Nucleated RBC % 0.0 ESR 1 Sodium 139 Potassium 3.6 Chloride 99 Carbon Dioxide 32 H Anion Gap 8 BUN 12 Creatinine 0.77 0.61 L Estim Creat Clear Calc 105 129 Estimated GFR > 60 > 60 Glucose 130 H Hemoglobin A1c 6.2 H Calcium 9.0 C-Reactive Protein 2.3 H Triglycerides 174 H Cholesterol 214 H LDL Cholesterol Direct 150 HDL Direct 43 Nasal MRSA (PCR) 11/09/24 06:04 WBC RBC Hgb Hct MCV MCH MCHC RDW Plt Count MPV Immature Gran % (Auto) Neut % (Auto) Lymph % (Auto) [place] % (Auto) Eos % (Auto) Baso % (Auto) Lymph # (Auto) [place] # (Auto) Eos # (Auto) Baso # (Auto) Abs Immat Gran (auto) Absolute Neuts (auto) Absolute Nucleated RBC Nucleated RBC % ESR Sodium Potassium Chloride Carbon Dioxide Anion Gap BUN Creatinine Estim Creat Clear Calc Estimated GFR Glucose Hemoglobin A1c Calcium C-Reactive Protein Triglycerides Cholesterol LDL Cholesterol Direct HDL Direct Nasal MRSA (PCR) Not detected Quality VTE Prophylaxis VTE prophylaxis: pharmacologic ordered (Lovenox 40 mg subQ q.12 hours) -Patient's previous records reviewed on admission -ER notes reviewed in detail on admission -discussed all findings and current treatment plan with patient/Family/POA -Consultations reviewed for recommendations -Patient's disposition for safe discharge discussed with case assembler Dictation performed by [employer] direct speech recognition software, therefore ware dresser variants and typographical errors may occur. Hospitalist MIPS Advance Care Plan I have confirmed that the patient's Advanced Care Plan is present, code status is documented, or surrogate decision maker is listed in patient medical record.: Yes Medication Reconciliation I have utilized all available resources to obtain, update and review the patients current medications (includes all prescriptions, OTC, herbals, cannabis, and nutritional supplements).: Yes The patient is not eligible for med reconciliation; the patient is in a emergent medical situation where delaying treatment would jeopardize the patients healt h.: No
[2024-11-09] MEDS: LINEZOLID 600 MG TABLET PO (21:08)
[2024-11-09 22:00] VITALS: BP 135/92; PULSE 80; RESP 18; TEMP 36.4; O2SAT 95
[2024-11-10 06:00] VITALS: BP 130/91; PULSE 86; RESP 22; TEMP 36.4; O2SAT 97
[2024-11-10 06:44] LABS: Hematocrit 54.3 % (42.0-52.0); Hemoglobin 17.1 g/dL (14.0-18.0); Mean Corpuscular HGB Conc 31.5 g/dl (32-36); Mean Corpuscular Hemoglobin 29.5 pg (26-34); Mean Corpuscular Volume 93.8 fl (80-100); Mean Platelet Volume 12.4 fl (7.4-10.4); Platelet Count Result 172 k/mm3 (150-375); Red Blood Count 5.79 M/mm3 (4.6-6.20); Red Cell Distribution Width 13.2 % (11.5-14.5); White Blood Count 7.7 K/mm3 (4.5-10.0)
[2024-11-10 06:58] LABS: Alanine Aminotransferase 31 U/L (6-50); Albumin Level 4.2 g/dL (3.5-5.1); Alkaline Phosphatase 114 U/L (38-126); Anion Gap 10 mmol/L (4-12); Aspartate Amino Transferase 30 U/L (17-59); Bilirubin,Total 0.4 mg/dL (0.2-1.3); Blood Urea Nitrogen 13 mg/dL (9-20); Calcium 8.5 mg/dL (8.4-10.2); Carbon Dioxide 26 mmol/L (22-30); Chloride 103 mmol/L (98-107); Estimated CRCL calculation 146 ml/min; Estimated Glomerular Filt Rate > 60; Glucose 134 mg/dL (65-110); Potassium 4.6 mmol/L (3.4-5.0); Sodium 139 mmol/L (137-145)
[2024-11-10] MEDS: ATORVASTATIN 20 MG TABLET PO (08:51)
[2024-11-10] MEDS: OLOPATADINE 0.1% OPHTH SOLN 5 ML BTL 1 DROP EACH EYE (08:52)
[2024-11-10] MEDS: LINEZOLID 600 MG TABLET PO (08:52)
[2024-11-10] MEDS: ENOXAPARIN 40 MG/0.4 ML SYRINGE SUB-Q (08:52)
[2024-11-10] MEDS: LORATADINE 10 MG TABLET PO (08:52)
[2024-11-10] MEDS: lisinopriL 20 MG TABLET PO (08:52)
[2024-11-10 14:00] VITALS: BP 143/90; PULSE 77; RESP 18; TEMP 36.4; O2SAT 92
--- NOTE | 2024-11-10 14:54 | PM.PNGS ---
Progress Note: A&P Assessment and Plan (1) Abscess, neck: Code(s): L02.11 - Cutaneous abscess of neck Status: Acute Assessment and Plan: S/p I&D left posterior neck abscess. It appears adequately drained with erythema and swelling improved. Cultures growing staph aureus, sensitivities pending. Continue daily packing with 1/4 iodoform gauze. Nursing is going to educate the patient on how to pack the wound with the stud dairy cattle farmer, and also print instructions in Mongolian as well. He is stable for discharge from a surgical standpoint on oral antibiotics. Would recommend coverage for MRSA if not waiting for sensitivities. He can follow-up with Dr. Mayorga in 2 weeks for wound check. Will sign off at this time. Call with any surgical concerns. (2) Essential hypertension: Code(s): I10 - Essential (primary) hypertension Status: Acute (3) Obesity, Class III, BMI 40-49.9 (morbid obesity): Code(s): E66.01 - Morbid (severe) obesity due to excess calories Status: Acute (4) Mass of pharynx: Code(s): J39.2 - Other diseases of pharynx Status: Acute Assessment and Plan: Noted on soft tissue neck CT with recommendation of ENT referral. Agree with outpatient ENT referral. (5) Metabolic syndrome: Code(s): E88.810 - Metabolic syndrome Status: Acute Plan I have discussed the patient's case and plan of care with Dr. Mayorga. Subjective Subjective Date/Time Seen: 11/10/24 14:54 Patient reports: no new complaints Interval history: Pain and swelling feels better today. No fevers. WBC normalized. Exam Narrative: Left posterior neck dressing and packing removed, no purulent drainage, swelling and induration improved Const: General: comfortable and no acute distress Objective Data Vital Signs Vital Signs: Vital Signs - 24 hr 11/09/24 21:08 11/09/24 22:00 11/10/24 06:00 Temperature 97.5 F L 97.6 F Pulse Rate 80 86 Respiratory Rate 18 22 H Blood Pressure 135/92 H 130/91 H Pulse Oximetry 95 97 Oxygen Delivery Room Air 11/10/24 14:00 Temperature 97.6 F Pulse Rate 77 Respiratory Rate 18 Blood Pressure 143/90 H Pulse Oximetry 92 Oxygen Delivery Intake/Output Intake/Output: Intake & Output 11/07/24 11/08/24 11/09/24 11/10/24 23:59 23:59 23:59 23:59 Intake Total 2560 800 Balance 2560 800 Meds/Results Medications: Active Medications Generic Name Dose Route Start Last Admin Trade Name Freq PRN Reason Stop Dose Admin Acetaminophen 650 mg 11/09/24 02:32 Acetaminophen 325 Mg Tablet PO Q4H PRN Headache Hydrocodone Bitart/Acetaminophen 1 tab 11/09/24 02:32 Hydrocodone/Acetaminophen (*Crx) 5-325 Mg Tablet PO Q6H PRN Pain Rated 7-10 Atorvastatin Calcium 20 mg 11/09/24 09:30 11/10/24 08:51 Atorvastatin 20 Mg Tablet PO 20 mg DAILY OLEG Administration Enoxaparin Sodium 40 mg 11/09/24 09:00 11/10/24 08:52 Enoxaparin 40 Mg/0.4 Ml Syringe SUB-Q 40 mg Q12HR OLEG Administration Ibuprofen 600 mg 11/09/24 02:32 Ibuprofen 600 Mg Tablet PO Q6H PRN Pain Rated 4-6 Linezolid 600 mg 11/09/24 21:00 11/10/24 08:52 Linezolid 600 Mg Tablet PO 11/15/24 21:01 600 mg Q12HR OLEG Administration Lisinopril 20 mg 11/09/24 09:00 11/10/24 08:52 Lisinopril 20 Mg Tablet PO 20 mg QAM OLEG Administration Loratadine 10 mg 11/09/24 09:00 11/10/24 08:52 Loratadine 10 Mg Tablet PO 10 mg QAM OLEG Administration Olopatadine HCl 1 drop 11/09/24 09:00 11/10/24 08:52 Olopatadine 0.1% Ophth Soln 5 Ml Btl EACH EYE 1 drop Q12HR OLEG Administration Radiology Results: ITS Impressions Soft Tissue Neck CT 11/08/24 21:06 IMPRESSION: Suggestion of pharyngeal mucosal space soft tissue fullness at the midline and to the right of midline, just above the level of the cricoid cartilage. Recommend ENT referral for indirect/direct laryngoscopy to exclude a mass. Labs Labs: Laboratory Results - last 24 hr 11/10/24 05:56 WBC 7.7 RBC 5.79 Hgb 17.1 Hct 54.3 H MCV 93.8 MCH 29.5 MCHC 31.5 L RDW 13.2 Plt Count 172 MPV 12.4 H Sodium 139 Potassium 4.6 Chloride 103 Carbon Dioxide 26 Anion Gap 10 BUN 13 Creatinine 0.53 L Estim Creat Clear Calc 146 Estimated GFR > 60 Glucose 134 H Calcium 8.5 Total Bilirubin 0.4 AST 30 ALT 31 Alkaline Phosphatase 114 Total Protein 7.0 Albumin 4.2
--- NOTE | 2024-11-10 15:10 | P.DS_ITS ---
DS: Admitting Diagnosis Discharge Date 11/10/2024 Admitting Diagnosis Neck abscess DS: Discharge Diagnosis Discharge Diagnosis (1) Abscess, neck: Code(s): L02.11 - Cutaneous abscess of neck Status: Acute Assessment and Plan: * CT soft tissue fullness suspicion for cellulitis * I&D bedside by previous provider * Q48 hour dressing changes * Surgery consulted for any further recommendations * Initially started on IV vancomycin normal WBC today * Wound culture sent * Blood cultures NGTD * Transition to PO Linezolid (2) Mass of pharynx: Code(s): J39.2 - Other diseases of pharynx Status: Acute Assessment and Plan: * Incidental finding on CT report * Spoke with Dr. Sammy alexander follow up outpatient with ENT (3) Snoring: Code(s): R06.83 - Snoring Status: Acute Assessment and Plan: * Recommending outpatient sleep study (4) Obesity, Class III, BMI 40-49.9 (morbid obesity): Code(s): E66.01 - Morbid (severe) obesity due to excess calories Status: Acute Assessment and Plan: * encourage increased on physical activity and lifestyle modifications * Diet exercise counseling done. * consult to dietitian (5) Essential hypertension: Code(s): I10 - Essential (primary) hypertension Status: Acute Assessment and Plan: * Patient was started on Lisinopril (6) Allergic conjunctivitis and rhinitis: Qualifiers: Laterality: bilateral Qualified Code(s): H10.13 - Acute atopic conjunctivitis, bilateral; J30.9 - Allergic rhinitis, unspecified Code(s): H10.10 - Acute atopic conjunctivitis, unspecified eye; J30.9 - Allergic rhinitis, unspecified Status: Acute Assessment and Plan: * Claritin and olpatadine eye drops started (7) Metabolic syndrome: Code(s): E88.810 - Metabolic syndrome Status: Acute (8) HLD (hyperlipidemia): Code(s): E78.5 - Hyperlipidemia, unspecified Status: Acute Assessment and Plan: * Lipid panel: Triglycerides 174 total cholesterol 214/LDL 150/HDL 43 * Started atorvastatin (9) Diabetes: Code(s): E11.9 - Type 2 diabetes mellitus without complications Status: Acute Assessment and Plan: * Hyperglycemic POA * A1c 6.2 * Can initiate metformin at discharge * Follow-up A1c in 3 month Plan Disposition: Discharged to home DS: Summary Hospital Course Reason for hospitalization: Neck abscess Hospital Course: Patient was a 49-year-old morbidly obese male with reportedly no significant past medical history who presented to the ER with erythema swelling and pain to the posterior neck just left of midline. At the symptoms are about 5 days ago with a small pimple peer to popped area and got a little bit of purulence. Whenever the area became larger and more red he applied a garlic paste to the area as someone told him that that would help bring the infection out. He reported that seemed to just cause more skin irritation. He has not been having any fevers or chills. He denies any prior history of recurrent skin infections. He denies any injury to the area. He went to me received a prescription for doxycycline ended taken 2 doses of antibiotics but did not have any improvement in symptoms in fact he decided to come here when he was having increasing pain. He is still had continuous purulent drainage from the area for the last couple of days. He has increased pain with palpation of the area he feels a lot of pressure. He denies any other related symptoms. He was noted to have some hyperglycemia on his labs in the ER in A1c was obtained which was elevated at 6.2 %. He denies a known history of diabetes. He denies any peripheral neuropathy. He does report despite on exertion of standing issue and has not worsened. He reports that is been gaining weight. He denies any chest pain or palpitations. He reported that several months ago she did have about 6 or 8 weeks of lower extremity swelling up to his knee with at is since resolved. He denies any orthopnea. He states that his reports that he snores quite loudly. He really to snoring due to getting a piece of hard food stuck near his uvula many years ago at which time he grabbed his uvula to get the food on stuck and he thinks he stretches uvula. The patient proceeded to then demonstrate how he could cough and props his uvula up on his posterior tongue. He has never been tested for obstructive sleep apnea. He does have daytime fatigue. Vital signs in the ER demonstrated persistently elevated blood pressures. He denies a known history of hypertension but has not followed with a doctor in at least 2 years. He denies ever being hospitalized or having surgery. Patient was then admitted to the medical unit for further evaluation and treatment of abscess to his posterior neck previous provider had done a bedside I and D with purulent drainage wound culture had been sent which grew Staph aureus blood cultures remained with no growth to date during his hospitalization he remained afebrile and at time of discharge had normal WBC. Patient was discharged on oral Zyvox with good Rx coupon given. Abscess was packed with iodoform in 4 x 4 gauze patient's spouse was provided instructions on dressing changes. Of note CT did show possible pharynx mass in spoke with ENT that this could be followed up outpatient once infection cleared no difficulty with shortness of breath or respiratory distress. Patient was also instructed they would need follow-up sleep study outpatient for possible LISANDRA. As reported before patient had elevated A1c started him on 500 mg metformin oral at discharge he was also continued on lisinopril 20 mg for hypertension. Patient was instructed to follow-up with primary care physician as well as surgery and ENT outpatient. Patient and instructed to return if symptoms worsened or he developed a fever chills tachycardia or signs of infection. Patient seen is S at time of discharge in no acute distress reported pain had resolved minimal scant purulent drainage to site and re-dressed prior to discharge. Patient and spouse acknowledged and agreed with discharge plan Rileyttice language line was used for interpretation this clinical rn Jeremy #[id number] Status at Discharge Functional status at discharge: independent ambulation Overall status at discharge: patient is back to baseline Time Spent with Patient Time attestation: Total time spent providing and/or coordinating discharge services: Time spent: Greater than 30 minutes Exam Narrative: Pleasant mohawk speaking male Const: General: comfortable and no acute distress Other: Morbidly obese, no acute distress, appears older age HENMT: Mouth: Yes moist mucous membranes Other: Head is normocephalic atraumatic, mucous membranes are moist, no oral pharyngeal erythema, severely crowded posterior oropharynx, extremely long uvula at is propped on the back the patient's tongue Eyes: General: appearance normal, both eyes and all related structures Pupils: Equal, round and reactive pupils present Other: Pupils are equal and reactive, injected scleral bilateral rib no conjunctival erythema, no drainage or purulent Neck: Lymphatic: lymphadenopathy Other: There is a 6 x 4 cm area of erythema and induration to left posterior neck with incision in the right of center of this area that is packed with iodoform gauz Resp: Effort & Inspection: normal respiratory effort Other: Increased work of breathing with exertion, otherwise lungs are clear to auscultation bilaterally, no accessory muscle use Cardio: Other: Regular rate, regular rhythm, 2+ bilateral radial pedal pulse GI: Auscultation: normal bowel sounds Other: Obese Skin: General skin exam: erythema (Posterior neck ) and wounds noted (Neck) Wounds: wounds noted (Neck) Other: Acanthosis nigricans to posterior neck, erythema and induration as described above chronic peeling skin to bilateral feet distant with tinea pedis Neuro: General: gait normal Cranial nerves: Yes Equal, round and reactive pupils present Speech: normal speech Other: Alert oriented, speech is clear, no facial asymmetry, no localizing neurologic deficits noted during the course of conversation, normal gait Extrem: General: normal to inspection Other: No clubbing, cyanosis or edema Psych: Mental Status: mental status grossly normal Affect: normal affect Other: Appropriate mood and affect, pleasant and cooperative, judgment and insight intact DS: Data Data Completed and Pending Labs on day of discharge: Labs from last 24 hours 11/10/24 05:56 WBC 7.7 RBC 5.79 Hgb 17.1 Hct 54.3 H MCV 93.8 MCH 29.5 MCHC 31.5 L RDW 13.2 Plt Count 172 MPV 12.4 H Sodium 139 Potassium 4.6 Chloride 103 Carbon Dioxide 26 Anion Gap 10 BUN 13 Creatinine 0.53 L Estim Creat Clear Calc 146 Estimated GFR > 60 Glucose 134 H Calcium 8.5 Total Bilirubin 0.4 AST 30 ALT 31 Alkaline Phosphatase 114 Total Protein 7.0 Albumin 4.2 Preliminary micro results at discharge 11/08/24 19:42 Anaerobic Culture - Preliminary Neck Aerobic Culture - Preliminary Staphylococcus aureus 11/08/24 19:42 Blood Culture - Preliminary Blood 11/08/24 19:42 Blood Culture - Preliminary Blood Imaging Radiologist's impression: Radiology Results: ITS Impressions Soft Tissue Neck CT 11/08/24 21:06 IMPRESSION: Suggestion of pharyngeal mucosal space soft tissue fullness at the midline and to the right of midline, just above the level of the cricoid cartilage. Recommend ENT referral for indirect/direct laryngoscopy to exclude a mass. Discharge Plan Discharge Attending physician on discharge: Nichole Panchal Consulting providers: Haydee Davis; Emmanuel Mayorga Discharging Clinician: Haydee Davis Anticipated Discharge Date/Time: 11/10/24 14:57 Patient Disposition: Home, Self-Care Activity: may shower Diet: as tolerated and diabetic Wound Care Instructions: change dressing daily Discharge Instructions: Neck Abscess: * Daily dressing changes pack with iodoform and cover with gauze * May shower ensure area is stays dry * I have prescribed Antibiotic therapy please take as prescribed * Follow-up with Surgery in 2 weeks * Return for medical attention if symptoms worsen including pain, fever, chills, and swelling Mass of Pharynx: * Referral for ENT as be provided for further evaluation Snoring: * Recommend outpatient sleep study outpatient may get referral from primary Hypertension: * I have started you on Lisinopril for elevated blood pressure take as indicated Diabetes: * I started you on low dose Metformin please follow-up in 3 months for follow-up A1c How can you care for yourself at home? ? Keep track of any new symptoms or changes in your symptoms. ? Rest until you feel better. ? Be safe with medicines. Take your medicines exactly as prescribed. Call your doctor if you think you are having a problem with your medicine. ? Do not drive after taking a prescription pain medicine. ? Ensure to follow-up with primary care physician as indicated and provide updated medication list provided to you at discharge. When should you call for help? Call 911 anytime you think you may need emergency care. For example, call if: ? You passed out (lost consciousness). Call your doctor now or seek immediate medical care if: ? You have new symptoms like fever, difficulty breathing, Chest pain, vomiting, or rash. ? You have new or different pain. ? You are confused and are having trouble thinking clearly. ? Your symptoms are getting worse. Watch closely for changes in your health, and be sure to contact your doctor if: ? You do not get better as expected. Patient Instructions: Antibiotic Form, Sleep Apnea (GEN), Type 2 Diabetes in Adults: New Diagnosis (DC), Chronic Hypertension (DC), Abscess Incision and Drainage (DC), Sleep Study (GEN), Diabetes and Nutrition (DC), Diabetes and Exercise (DC), Type 2 Diabetes Management for Adults (DC) Patient Language: Bahamian Stand Alone Forms: General Discharge Information Follow-up/Referrals: Montana Christianson MD [Physician] - Call for Appointment ([facility] for neck is and LISANDRA ) PHYSICIAN,CONTRACTING ANALYST [Primary Care Provider] - 4 Weeks (Follow-up with Primary) Emmanuel Mayorga MD [Physician] - 2 Weeks () Discharge Medications: New atorvastatin 20 mg Tablet 20 mg PO DAILY Qty: 30 0RF lisinopril 20 mg Tablet 20 mg PO QAM Qty: 30 0RF metformin 500 mg tablet 500 mg PO DAILY Qty: 30 0RF linezolid 600 mg tablet 600 mg PO Q12H Qty: 11 0RF Discontinued doxycycline hyclate 100 mg capsule 100 mg PO Q12H Date of admission: 11/08/24 22:43 Primary Care Provider: PHYSICIAN,CONTRACTING ANALYST Admitting Provider: Celeste Nino Attending physician on admission: Celeste Nino Condition: Stable Quality VTE Prophylaxis VTE prophylaxis: pharmacologic ordered (Lovenox 40 mg subQ q.12 hours) -Patient's previous records reviewed on admission -ER notes reviewed in detail on admission -discussed all findings and current treatment plan with patient/Family/POA -Consultations reviewed for recommendations -Patient's disposition for safe discharge discussed with behavioral health case manager Dictation performed by [employer] direct speech recognition software, therefore candy separator hard variants and typographical errors may occur. Hospitalist MIPS Heart Failure (Exclusion) Patient has history of Heart Transplant or Left Ventricular Assistive Device?: No IF YES, STOP HERE Heart Failure (Qualifier) Patient has current or prior documentation of LVEF less than or equal to 40%, or mod/servere depressed LVSF?: No IF NO, STOP HERE
== END 2024-11-10 16:10 | disposition home or self-care (01) ==
LOC: ANHED 22:47 → ANH3MEDSUR 11-09 08:54
PROVIDERS: Nurse Practitioner Family; Admitting Provider Internal Medicine; Emergency Provider Physician Assistant; Visit Provider Internal Medicine
DX: L02.11 Cutaneous abscess of neck (principal); B95.61 Methicillin susceptible Staphylococcus aureus infection as the cause of diseases classified elsewhere; J39.2 Other diseases of pharynx; R06.83 Snoring; E66.01 Morbid (severe) obesity due to excess calories; Z68.41 Body mass index [BMI] 40.0-44.9, adult; E88.810 Metabolic syndrome; E11.65 Type 2 diabetes mellitus with hyperglycemia; I10 Essential (primary) hypertension; H10.13 Acute atopic conjunctivitis, bilateral; J30.9 Allergic rhinitis, unspecified
CPT/HCPCS: 10060; 36415; 70491; 80048; 80053; 80061; 82565; 83036; 85025; 85027; 85652; 86140; 87040; 87070; 87075; 87181; 87205; 87641; 96365; 96366; 96372; 96374; 99285; A9270; G0378; J1650; J2003; J3370; Q9967

== ENCOUNTER 2025-02-20 21:05 | Emergency (ER) | payer SELFPAY ==
--- NOTE | ~2025-02-20 | XR_ITS ---
Portable chest x-ray Comparison: None Clinical History: Dyspnea Findings: Possible minimal central congestive change. No consolidation or pleural effusion. Cardiom ediastinal silhouette is mildly prominent, possibly due to AP technique. Bones and soft tissues are u nremarkable. Impression: Possible mild central congestive changes. Reviewed, dictated and finalized at location . Impression: Possible mild central congestive changes.
--- NOTE | ~2025-02-20 | XR_ITS ---
PA, oblique, and lateral views of the right third finger CLINICAL HISTORY: Swelling FINDINGS: No fracture or dislocation seen. Joint spaces are preserved. There is diffuse soft tissue s welling the right third digit. IMPRESSION: Diffuse soft tissue swelling of the right third finger, nonspecific. No osseous or articular abnormal ity seen. Reviewed, dictated and finalized at [facility]. IMPRESSION: Diffuse soft tissue swelling of the right third finger, nonspecific. No osseous or articular abnormality seen.
[2025-02-20 21:55] VITALS: BP 190/130; PULSE 90; RESP 16; TEMP 37.2; O2SAT 95
[2025-02-20 23:26] VITALS: BP 174/120; PULSE 79; RESP 16; TEMP 37.1; O2SAT 92
[2025-02-20 23:31] VITALS: PULSE 94; RESP 27; O2SAT 94
--- NOTE | 2025-02-20 23:34 | ED.GENADULT ---
HPI - General Adult General Chief complaint: Skin/Abscess/Foreign Body Stated complaint: R swollen finger and arm, possible insect bite Time Seen by Provider: 02/20/25 23:32 Source: patient and family Mode of arrival: ambulatory Limitations: language barrier ([place]ese; Retail District Manager Sulema #[id number]) History of Present Illness HPI narrative: Segyk-zimu-jzvsndft male presents with concern for swell and pain of his right 3rd digit as well as throughout the right arm. He noticed it a few days ago thought it might be due to an insect bite versus billable. Had a small lesion between the D IP and PIP on the palmar aspect of this finger. He tried to squeeze it as he thought that if he could get some pus and pressure out of it it would feel better. Patient does have pain at around fingernails and arm. Multiple times using the catering director to question in various ways if this could be a high-pressure injection injury but patient denies using a paint sprayer for a tool like this. He states he pains with brush/roller only. In addition, he reports that he has been having lower extremity swelling in his bilateral legs and experiencing shortness of breath with exertion for the past few weeks. He also feels like he has abdominal swelling after he eats. He has a history of sleep apnea which is not treated with CPAP. He states that when he sleeps he does snore. Blood pressure in triage noted to be 190/130. Patient does not have a primary care physician. He has not seen a doctor in years. Denies any headache. No chest pain. He also reports that he has another area redness and pain that looks like a pimple in his gluteal cleft. Related Data Allergies Allergy/AdvReac Type Severity Reaction Status Date / Time No Known Allergies Allergy Verified 02/20/25 23:30 [facility] Past Medical History Medical History Right hand dominant Obesity, Class III, BMI 40-49.9 (morbid obesity) Surgical History Surgical History No history of previous surgery Family History Family History Other Unknown family medical history Social History Social History Social History: The patient is . He has 2 adult sons. Denies any history of tobacco, marijuana or alcohol use. 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 HEAD: Normocephalic, atraumatic. EYES: Non injected, non icteric ENT: Nares clear, no rhinorrhea or epistaxis. Gross auditory acuity intact. NECK: Supple. No meningismus. CHEST: Speaking in full sentences. No respiratory distress. Lungs clear to auscultation bilaterally but limited due to body habitus. HEART: Regular rate and rhythm. 2+ radial pulse right. Capillary refill in affected digit only mildly delayed. ABDOMEN: Soft, nondistended. No rigidity or guarding. Not peritoneal. No anasarca. EXTREMITIES: Right forearm swollen compared to the left and with warmth but no cammie erythema. Patient's right hand is swollen and in particular his right 3rd digit which appears nearly fusiform in his held in slight flexion. Patient has tenderness to palpation throughout the flexor and extensor aspect. Trace bilateral lower extremity edema. Red wound along palmar aspect of R 3rd digit between DIP and PIP, tender to palpation but without cammie purulent drainage. SKIN: Warm, dry. NEURO: No focal deficits. Alert and oriented. Answering questions. Following commands. Normal speech without aphasia or dysarthria. PSYCH: Normal mood and affect. Course Vital Signs Vital signs: Vital Signs Temperature 99 F 02/20/25 21:55 Pulse Rate 90 02/20/25 21:55 Respiratory Rate 16 02/20/25 21:55 Blood Pressure 190/130 H 02/20/25 21:55 Pulse Oximetry 95 02/20/25 21:55 Oxygen Delivery Room Air 02/20/25 21:55 Temperature 98.7 F 02/20/25 23:26 Pulse Rate 91 02/21/25 04:18 Respiratory Rate 20 02/21/25 04:18 Blood Pressure 153/108 H 02/21/25 04:28 Pulse Oximetry 96 02/21/25 04:18 Oxygen Delivery Nasal Cannula 02/21/25 01:22 Oxygen Flow Rate 2 02/21/25 01:22 Medical Decision Making MDM Narrative Medical decision making narrative: Stlqb-lxqk-hujmfrvn [place]ese-speaking male presents with concern for right swollen finger with pain that extends throughout the hand forearm. He thought it was possibly an insect bite versus pimple. In the emergency department he is afebrile with vital signs notable for hypertension. [place] signs for flexor sheath infection Finger held in slight flexion: Yes Fusiform swelling of affected digit: Yes Tenderness along flexor tendon sheath: Yes (along both) Pain with passive extension of digit: Yes PROCEDURE NOTE: In addition, POCUS (point of care ultrasound) performed by myself which shows hypoechogenic effusion adjacent to the flexor tendon. This further raises concern for flexor tenosynovitis. Patient given analgesic medication. Leukocytosis. Mildly elevated CPK. Normal Dimer. BNP normal. Patient is not received care through any other area hospital system. Initially attempted to consult [facility] however they do not have a hand surgeon on-call at their 2 main locations. [facility] consulted. Spoke with Dr Yates orthopedic hand surgeon: Recommends Send to ED and they will consult. Spoke with ED attending at [facility]. Dr Clifford Yee. Accepted. IV antibiotics (clindamycin) already going after obtaining blood cultures. EMS transportation arranged at patient's request as they do not have transportation to go private vehicle. Differential Diagnosis Differential Diagnosis: Flexor tenosynovitis, high injection/pressure injury; cellulitis/abscess; thoracic outlet syndrome/SVC; pulmonary embolism; acute heart failure; pneumonia; obstructive sleep apnea/obesity hypoventilation syndrome Vital Signs Vital Signs: Vital Signs Temperature 99 F 02/20/25 21:55 Pulse Rate 90 02/20/25 21:55 Respiratory Rate 16 02/20/25 21:55 Blood Pressure 190/130 H 02/20/25 21:55 Pulse Oximetry 95 02/20/25 21:55 Oxygen Delivery Room Air 02/20/25 21:55 Temperature 98.7 F 02/20/25 23:26 Pulse Rate 91 02/21/25 04:18 Respiratory Rate 20 02/21/25 04:18 Blood Pressure 153/108 H 02/21/25 04:28 Pulse Oximetry 96 02/21/25 04:18 Oxygen Delivery Nasal Cannula 02/21/25 01:22 Oxygen Flow Rate 2 02/21/25 01:22 Lab Data Lab results reviewed: Yes I reviewed the patient's lab results. 02/20/25 23:58 02/20/25 23:58 Labs: Lab Results 02/20/25 02/21/25 Range/Units 23:58 00:31 WBC 12.6 H (4.5-10.0) K/mm3 RBC 5.61 (4.6-6.20) M/mm3 Hgb 16.6 (14.0-18.0) g/dL Hct 50.0 (42.0-52.0) % MCV 89.1 (80-100) fl MCH 29.6 (26-34) pg MCHC 33.2 (32-36) g/dl RDW 13.5 (11.5-14.5) % Plt Count 173 (150-375) k/mm3 MPV 11.8 H (7.4-10.4) fl Immature Gran % (Auto) 0.3 (0-0.5) % Neut % (Auto) 78.2 H (45.5-73.1) % Lymph % (Auto) 11.1 L (18.3-44.2) % Bay % (Auto) 8.8 H (2.6-8.5) % Eos % (Auto) 1.4 (0-4.4) % Baso % (Auto) 0.2 (0.2-1.2) % Lymph # (Auto) 1.39 (0.9-3.2) K/mm3 [place] # (Auto) 1.1 H (0.1-0.6) K/mm3 Eos # (Auto) 0.2 (0-0.3) K/mm3 Baso # (Auto) 0.0 (0.0-0.1) K/mm3 Abs Immat Gran (auto) 0.04 H (0.00-0.031) K/mm3 Absolute Neuts (auto) 9.8 H (1.3-6.7) K/mm3 Absolute Nucleated RBC 0.000 (0.0-0.012) K/mm3 Nucleated RBC % 0.0 (0.0-0.2) % D-Dimer 0.32 (<0.48) ug/mL Sodium 137 (137-145) mmol/L Potassium 4.0 (3.4-5.0) mmol/L Chloride 103 (98-107) mmol/L Carbon Dioxide 25 (22-30) mmol/L Anion Gap 9 (4-12) mmol/L BUN 14 (9-20) mg/dL Creatinine 0.61 L (0.7-1.3) mg/dL Estim Creat Clear Calc 130 ml/min Estimated GFR > 60 (59 - ) Glucose 120 H (65-110) mg/dL Calcium 8.5 (8.4-10.2) mg/dL Magnesium 2.1 (1.6-2.3) mg/dL Total Bilirubin 0.8 (0.2-1.3) mg/dL AST 30 (17-59) U/L ALT 31 (6-50) U/L Alkaline Phosphatase 100 (38-126) U/L Total Creatine Kinase 256 H (55-170) U/L NT-Pro-B Natriuret Pep 21 (19.9-100) pg/mL Total Protein 8.0 (6.3-8.2) g/dL Albumin 4.4 (3.5-5.1) g/dL Urine Color Yellow (Yellow) Urine Appearance Clear (Clear) Urine pH 6.0 (5.0-9.0) Ur Specific [place] 1.011 (1.001-1.035) Urine Protein Negative (Negative) mg/dL Urine Glucose (UA) Negative (Negative) mg/dL Urine Ketones Negative (Negative) mg/dL Ur Blood (Man) Negative (Negative) Urine Nitrate Negative (Negative) Urine Bilirubin Negative (Negative) Urine Urobilinogen 1.0 (<2.0) mg/dL Leukocyte Esterase Rfl Negative (Negative) TIMA/UL Imaging Data Attestation: I personally reviewed and interpreted this imaging study as follows: My impression: Cardiomegaly and patchy infiltrate on my independent interpretation of chest x-ray however possibly due to body habitus Finger Xray negative on my indepednent review ECG Data EKG #1: Attestation: I personally reviewed and interpreted this ECG as follows: ECG completion date: 02/20/25 ECG completion time: 23:55 Interpretation: Normal sinus rhythm at a rate of 77 beats per minute. WA interval 160. QRS 104. QT/QTC 366/397. Right axis deviation (QRS is positive with a dominant R wave in leads II, III, and aVF; negative with a dominant S wave in lead I). No T-wave inversions. Discharge Plan Discharge Clinical Impression: Swelling of right middle finger, Leukocytosis, Elevated CPK, Flexor tenosynovitis of finger Patient Disposition: Acute Care Hospital Condition: Stable Patient Language: [place]ese Prescriptions: No Action atorvastatin 20 mg Tablet 20 mg PO DAILY Qty: 30 0RF lisinopril 20 mg Tablet 20 mg PO QAM Qty: 30 0RF metformin 500 mg tablet 500 mg PO DAILY Qty: 30 0RF linezolid 600 mg tablet 600 mg PO Q12H Qty: 11 0RF Follow-up/Referrals: PHYSICIAN,PACKING HOUSE SUPERVISOR [Primary Care Provider] -
--- NOTE | 2025-02-20 23:35 | ECG_ITS ---
Test Date: 2025-02-20 23:55:09 Measurements Intervals [place] Rate: 77 P: 25 ID: 160 QRS: 105 QRSD: 104 T: 37 QT: 366 QTc: 414 Interpretive Statements SINUS RHYTHM RIGHT AXIS DEVIATION BASELINE ARTIFACT- III, AVL, AVF, V1, V4-V6 BORDERLINE ECG No previous ECG available for comparison Electronically Signed On 02-21-2025 07:57:51 CDT by James Jovel D.O.
[2025-02-21] VITALS (18 sets, daily range): BP systolic 142–188; BP diastolic 102–125; PULSE 73–97; RESP 17–26; O2SAT 90–97
[2025-02-21 00:03] LABS: Basophils Percent Auto 0.2 % (0.2-1.2); Eosinophils Absolute Auto 0.2 K/mm3 (0-0.3); Eosinophils Percent Auto 1.4 % (0-4.4); Hemoglobin 16.6 g/dL (14.0-18.0); Immature Granulocyte Absolute 0.04 K/mm3 (0.00-0.031); Immature Granulocyte Percent A 0.3 % (0-0.5); Lymphocytes Absolute Auto 1.39 K/mm3 (0.9-3.2); Lymphocytes Percent Auto 11.1 % (18.3-44.2); Mean Corpuscular HGB Conc 33.2 g/dl (32-36); Mean Corpuscular Hemoglobin 29.6 pg (26-34); Mean Corpuscular Volume 89.1 fl (80-100); Mean Platelet Volume 11.8 fl (7.4-10.4); Monocytes Absolute Auto 1.1 K/mm3 (0.1-0.6); Monocytes Percent Auto 8.8 % (2.6-8.5); Neutrophils Absolute Auto 9.8 K/mm3 (1.3-6.7); Neutrophils Percent Auto 78.2 % (45.5-73.1); Platelet Count Result 173 k/mm3 (150-375); Red Blood Count 5.61 M/mm3 (4.6-6.20); Red Cell Distribution Width 13.5 % (11.5-14.5); White Blood Count 12.6 K/mm3 (4.5-10.0)
[2025-02-21 00:14] LABS: Creatine Kinase 256 U/L (55-170); Magnesium 2.1 mg/dL (1.6-2.3)
[2025-02-21 00:16] LABS: Alanine Aminotransferase 31 U/L (6-50); Albumin Level 4.4 g/dL (3.5-5.1); Alkaline Phosphatase 100 U/L (38-126); Anion Gap 9 mmol/L (4-12); Aspartate Amino Transferase 30 U/L (17-59); Bilirubin,Total 0.8 mg/dL (0.2-1.3); Blood Urea Nitrogen 14 mg/dL (9-20); Calcium 8.5 mg/dL (8.4-10.2); Carbon Dioxide 25 mmol/L (22-30); Chloride 103 mmol/L (98-107); Estimated CRCL calculation 130 ml/min; Estimated Glomerular Filt Rate > 60; Glucose 120 mg/dL (65-110); Sodium 137 mmol/L (137-145)
[2025-02-21 00:25] LABS: NT Pro B Type Natriuretic Pept 21 pg/mL (19.9-100)
[2025-02-21 00:26] LABS: D Dimer 0.32 ug/mL (<0.48)
[2025-02-21] MEDS: MORPHINE SULFATE (*CRX) 4 MG/ML INJ IV PUSH (00:31)
[2025-02-21 00:38] LABS: Add Urine Microscopic? NO; Appearance Urine Clear (Clear); Bilirubin Urine Negative (Negative); Blood Urine Negative (Negative); Color Urine Yellow (Yellow); Glucose Urine UA Negative (Negative); Ketones Urine Negative (Negative); Leukocyte Esterase Ur Negative LEU/UL (Negative); Nitrate Urine Negative (Negative); Protein Urine Negative (Negative); Specific Grav Ur 1.011 (1.001-1.035)
[2025-02-21] MEDS: CLINDAMYCIN 600 MG/D5W 50 ML 600 MG/50 ML PIGGYBACK 100 MG IVPB (01:20)
== END 2025-02-21 04:37 | disposition short-term general hospital (02) ==
PROVIDERS: Emergency Provider Student in an Organized Health Care Education/Training Program
DX: R22.31 Localized swelling, mass and lump, right upper limb (principal); D72.829 Elevated white blood cell count, unspecified; S63.612A Unspecified sprain of right middle finger, initial encounter; R74.8 Abnormal levels of other serum enzymes
CPT/HCPCS: 36415; 71045; 73140; 80053; 81003; 82550; 83735; 83880; 85025; 85380; 87040; 93005; 96365; 96375; 99285; J2270